=== PATIENT | male | born 1990 | race Caucasian/White ===

== ENCOUNTER 2024-06-24 16:06 | Emergency (ER) | payer OTHER ==
[2024-06-24] MEDS ORDERED: ONDANSETRON 4 MG/2 ML VIAL ONE (16:36)
[2024-06-24 16:39] VITALS: BMI 30.6
[2024-06-24] MEDS: ONDANSETRON 4 MG/2 ML VIAL IVPUSH ONE (16:54)
[2024-06-24] MEDS: SODIUM CHLORIDE 0.9% 1000 ML INFUS.BAG IV ONE ×2 (16:54→18:51)
[2024-06-24 17:04] LABS: MCHC 33.2 g/dl (32.0-35.9); MEAN CELL VOLUME 87.4 fl (80-96); MEAN PLT VOLUME 7.3 fl (7.5-11.1); PLATELET COUNT 324.8 10^3/uL (134-434); RBC 4.81 10^6/uL (4.00-5.60); WHITE BLOOD COUNT 14.1 10^3/uL (4.0-10.8)
[2024-06-24] MEDS ORDERED: MAGNESIUM 1GM/D5W - 1 GM/100 ML IVPB IVPB ONE (17:06)
[2024-06-24] MEDS: MAGNESIUM SULF 50% (8.12 MEQ/2 ML-1 GM VIAL) IVPB ONE (17:15)
[2024-06-24 17:21] LABS: BILIRUBIN,TOTAL 0.8 mg/dl (0.2-1); POTASSIUM 3.8 mmol/L (3.5-5.1); TOT PROT 7.4 g/dl (6.4-8.2)
[2024-06-24 17:43] LABS: PLATELET ESTIMATE ADEQUATE
[2024-06-24] MEDS: MAGNESIUM OXIDE 400 MG TABLET (FP) PO ONE (18:33)
[2024-06-24 18:40] VITALS: BP 159/77; PULSE 42; RESP 19; TEMP 98.4
[2024-06-24] MEDS ORDERED: PANTOPRAZOLE SODIUM 40 MG VIAL ONE (18:46)
[2024-06-24] MEDS: PANTOPRAZOLE SODIUM 40 MG VIAL IVPUSH ONE (18:51)
== END 2024-06-24 21:09 | disposition home or self-care (01) ==
LOC: FER 16:06
PROC: 3E033GC Introduction of Other Therapeutic Substance into Peripheral Vein, Percutaneous Approach (ICD-10-PCS; principal; 2024-06-24)
PROC: 3E033GC Introduction of Other Therapeutic Substance into Peripheral Vein, Percutaneous Approach (ICD-10-PCS; 2024-06-24)
PROC: 3E033GC Introduction of Other Therapeutic Substance into Peripheral Vein, Percutaneous Approach (ICD-10-PCS; 2024-06-24)
DX: K52.9 Noninfective gastroenteritis and colitis, unspecified (principal); R11.2 Nausea with vomiting, unspecified; R42 Dizziness and giddiness; R00.1 Bradycardia, unspecified; R12 Heartburn; Z20.822 Contact with and (suspected) exposure to COVID-19
CPT/HCPCS: 0241U-QW; 36415; 74177-TC; 80053; 81003; 81015; 83690; 83735; 84484; 85025; 87086; 93005; 93010; 99285-25; Q9967